=== PATIENT | male | born 1945 | race Caucasian/White ===

== ENCOUNTER 2018-12-05 06:06 | Day surgery (SDC) | payer MEDICARE, OTHER ==
[~2018-12-05] VITALS: Ht 182.9 cm; Wt 72.6 kg
[~2018-12-05 06:06] MED LIST: ASPI81TA16 PO
[2018-12-05] MEDS ORDERED: SIMV20TA1 PO (07:21)
[2018-12-05] MEDS ORDERED: DIGO0.122 PO (07:21)
[2018-12-05] MEDS ORDERED: WARF2.5T77 PO (07:21)
[2018-12-05] MEDS ORDERED: fentaNYL 0.05 MG/ML VIAL ONE (07:44)
[2018-12-05] MEDS ORDERED: LIDOCAINE 2% 100 MG/5 ML UJET TP ONE (07:45)
[2018-12-05] MEDS ORDERED: MIDAZOLAM 2 MG/2 ML VIAL ONE (08:20)
[2018-12-05] MEDS ORDERED: fentaNYL 0.05 MG/ML VIAL IVP ONE (13:35)
[2018-12-05] MEDS ORDERED: MIDAZOLAM 2 MG/2 ML VIAL IVP ONE (13:35)
== END 2018-12-05 09:25 | disposition home or self-care (01) ==
LOC: MDS 06:06 → MMU 06:07 → MDS 09:25
PROVIDERS: ATTEND Internal Medicine Gastroenterology
DX: Z12.11 Encounter for screening for malignant neoplasm of colon (principal); D12.3 Benign neoplasm of transverse colon; I49.9 Cardiac arrhythmia, unspecified; E11.9 Type 2 diabetes mellitus without complications; F15.90 Other stimulant use, unspecified, uncomplicated; E78.5 Hyperlipidemia, unspecified; Z93.3 Colostomy status; Z79.899 Other long term (current) drug therapy; Z98.890 Other specified postprocedural states; Z79.01 Long term (current) use of anticoagulants; Z86.73 Personal history of transient ischemic attack (TIA), and cerebral infarction without residual deficits
CPT/HCPCS: 44394; J2250; J3010; 44388